=== PATIENT | male | born 1955 | race Caucasian/White ===

== ENCOUNTER → 2024-07-27 07:32 | Outpatient (REF) | payer OTHER, SELFPAY | LOC: HWRAD 07:32 | PROVIDERS: ATTENDING PHYSICIAN Nurse Practitioner Family; FAMILY PHYSICIAN Nurse Practitioner Adult Health | DX: E04.2 Nontoxic multinodular goiter (principal) | CPT/HCPCS: 76536 ==

== ENCOUNTER 2024-08-06 06:17 | Day surgery (SDC) | payer OTHER, SELFPAY ==
[2024-08-06 07:14] LABS: Glucose - Point of Care 117 mg/dl (70-99)
== END 2024-08-06 08:49 | disposition home or self-care (01) ==
LOC: GI 06:17
PROVIDERS: ATTENDING PHYSICIAN Internal Medicine
DX: Z12.11 Encounter for screening for malignant neoplasm of colon (principal); K57.30 Diverticulosis of large intestine without perforation or abscess without bleeding
CPT/HCPCS: G0121; 82962

== ENCOUNTER → 2025-01-12 09:31 | Outpatient (REF) | payer OTHER, SELFPAY | LOC: HWRAD 09:31 | PROVIDERS: ATTENDING PHYSICIAN Nurse Practitioner Family; FAMILY PHYSICIAN Nurse Practitioner Adult Health | DX: E04.1 Nontoxic single thyroid nodule (principal) | CPT/HCPCS: 76536 ==

== ENCOUNTER → 2025-02-10 08:18 | Outpatient (REF) | payer OTHER, SELFPAY ==
[2025-02-10 08:35] VITALS: BP 133/81; BP_SYST 58
== END ==
LOC: RADI 08:18
PROVIDERS: ATTENDING PHYSICIAN Nurse Practitioner Family; FAMILY PHYSICIAN Nurse Practitioner Adult Health
DX: E04.1 Nontoxic single thyroid nodule (principal)
CPT/HCPCS: 10005; 88173

== ENCOUNTER → 2025-02-11 12:39 | Outpatient (REF) | payer OTHER, SELFPAY | LOC: HWRAD 12:39 | PROVIDERS: ATTENDING PHYSICIAN Nurse Practitioner Adult Health | DX: M54.31 Sciatica, right side (principal); M54.32 Sciatica, left side | CPT/HCPCS: 72110 ==